=== PATIENT | male | born 1960 | race Caucasian/White ===

== ENCOUNTER 2017-04-29 12:49 | Day surgery (SDC) | payer OTHER ==
[~2017-04-29 12:49] MED LIST: RINGER'S SOLUTION,LACTATED 1,000 ML IV PRN
[2017-04-29] MEDS ORDERED: RINGER'S SOLUTION,LACTATED 1,000 ML IV ONE (13:47)
[2017-04-29] MEDS ORDERED: RINGER'S SOLUTION,LACTATED 1,000 ML IV PRN (14:52)
[2017-04-29] MEDS ORDERED: LEVOFLOXACIN IN DEXTROSE 5 % 750 MG/150 ML BAG IV SCH (15:00)
[2017-04-29 16:56] VITALS: BP 125/80
--- NOTE | 2017-04-30 14:42 | OR ---
Operative Report - Dictated Report Narrative: OPERATIVE REPORT DATE OF OPERATION: 04/29/2017 PREOPERATIVE DIAGNOSIS: History of colon polyps POSTOPERATIVE DIAGNOSIS: 2 mm cecal polyp, 5 mm polyp at 20 cm (pathology pending). Severe diverticulosis with nonspecific inflammation OPERATION: Colonoscopy with hot biopsy forceps polypectomy in the cecum and snare polypectomy at 20 cm SURGEON: Kristel Wilburn MD ANESTHESIA: ISAÍAS Cheema CRNA INDICATIONS FOR PROCEDURE: The patient is a 57-year-old male referred by Dr. Francis. The patient had two 3 mm sigmoid tubular adenomas biopsied and removed , and a similar smaller polyp was simply destroyed in place on a colonoscopy in 2011. There is no family history of colon cancer. FINDINGS: 2 mm area of possible polypoid change in the cecum. 5 mm pedunculated polyp at 20 cm (pathology pending) severe sigmoid diverticulosis with patches of nonspecific inflammation. NARRATIVE OF PROCEDURE: The patient was identified in the holding area, and prior to the administration of anesthetic, a multidisciplinary timeout was observed. With the patient in the left lateral position and after the administration of intravenous sedation, the perineum was inspected. There was no evidence of pilonidal disease or skin breakdown. The external appearance of the anus was normal. Sphincter tone was good. The flexible fiberoptic colonoscope was inserted into the rectum which was insufflated with air. The rectal mucosa and submucosal vascular pattern appeared normal, the prep was seen to be complete. The scope was advanced through the sigmoid colon, which contained many large diverticular openings several of which were impacted with stool. There were several patches of nonspecific inflammation present. The scope was advanced up the descending colon, and around the splenic flexure where the triangular haustral architecture of the transverse colon was seen. The scope was advanced across the transverse colon, around the hepatic flexure to the cecum, where the confluence of tenia and the ileocecal valve were identified. There was a 2 mm area of possible polypoid change in the cecum. This was biopsied with hot biopsy forceps and then thoroughly destroyed with electrocautery. The site was seen to be complete and hemostatic. The mucosa at this level appeared otherwise normal. The scope was then slowly withdrawn in a circular fashion so that all aspects of colonic mucosa were inspected. The colon was . The haustral architecture appeared well preserved throughout with no evidence of external compression. The mucosa and submucosal vascular pattern appeared normal with exception of some patches of nonspecific inflammatory change in the sigmoid, specifically there was no gross evidence to suggest inflammatory bowel disease and no AV malformations were seen. At 20 cm a 5 mm pedunculated adenomatous polyp was encountered. This was removed with cautery snare and retrieved for pathology. The base of the polypectomy appeared complete and hemostatic. The scope was gradually withdrawn to the level of the rectum. As much insufflated air as possible was removed. The scope was withdrawn from the patient and the procedure terminated. The patient tolerated the anesthetic and procedure well without complication and was transferred back to the ambulatory surgery area awake and in stable condition. The patient remained stable throughout a period of postoperative observation. He denied abdominal discomfort, was able to tolerate by mouth intake, and was up without assistance. I shared the operative findings with the patient and his and he was given copies of the photographs which appear in the medical record. He was discharged home with instructions not to engage in hazardous activity today, but may resume normal activity tomorrow, and advance diet as tolerated. He is to continue those medications as listed in the history and physical exam. I made arrangements to contact him with the biopsy reports and will make additional recommendations for treatment and follow-up based upon those results. Reviewed and electronically signed
== END 2017-04-29 12:50 | disposition home or self-care (01) ==
LOC: AMB 12:49
PROVIDERS: ATTEND Surgery
PROC: 0DBH8ZX Excision of Cecum, Via Natural or Artificial Opening Endoscopic, Diagnostic (ICD-10-PCS; principal; 2017-04-29)
PROC: 0DBN8ZX Excision of Sigmoid Colon, Via Natural or Artificial Opening Endoscopic, Diagnostic (ICD-10-PCS; 2017-04-29)
DX: Z12.11 Encounter for screening for malignant neoplasm of colon (principal); D12.5 Benign neoplasm of sigmoid colon; K63.5 Polyp of colon; K57.30 Diverticulosis of large intestine without perforation or abscess without bleeding; E78.5 Hyperlipidemia, unspecified; Z87.891 Personal history of nicotine dependence; Z68.33 Body mass index [BMI] 33.0-33.9, adult